=== PATIENT | female | born 1995 | race Caucasian/White ===

== ENCOUNTER → 2017-12-18 17:54 | Outpatient (REF) | payer OTHER, SELFPAY ==
--- NOTE | 2017-12-18 17:00 | CER_PTH ---
PATIENT: Xin De La Paz LOC: [facility] U#:[id number] AGE/SX: 30/F ROOM: RE12/18/[address]: Meryl Crowell MD : 1995 BED: DIS: SPEC #: [id number] RECD: 12/18/17 17:57 STATUS: DACIA BATISTA #: [id number] VERO: 12/18/17 17:[address]: Meryl Crowell DEPT: Surgical Specimen RECD BY: Lorraine Escalona ENTERED: 12/18/17 17:58 SP TYPE: CER OTHR DR: Kevan Villatoro Tissues: 1 - CERVICAL BIOPSY 2 - CERVICAL BIOPSY 3 - ENDOCERVICAL BX/CURRETTE Procedures: GROSS AND MICRO LEVEL 4 Comments: [id number]
== END ==
LOC: LBN 17:54
PROVIDERS: PCP Internal Medicine; Visit Provider Obstetrics & Gynecology
DX: N87.9 Dysplasia of cervix uteri, unspecified (principal); R87.611 Atypical squamous cells cannot exclude high grade squamous intraepithelial lesion on cytologic smear of cervix (ASC-H)
CPT/HCPCS: 88305

== ENCOUNTER 2019-06-10 16:31 | Outpatient (REF) | payer OTHER, SELFPAY ==
--- NOTE | 2019-06-10 15:48 | PAPFT_PTH ---
PATIENT: Xin De La Paz LOC: [facility] U#:[id number] AGE/SX: 24/F ROOM: RE06/10/[address]: Alexander Quarles MD : 1995 BED: DIS: 06/10/2019 SPEC #: [id number] RECD: 06/11/19 12:27 STATUS: DACIA REPari #: [id number] VERO: 06/10/19 15:[address]: Alexander Quarles DEPT: [facility] Cytology RECD BY: Lorraine Escalona ENTERED: 06/11/19 12:27 SP TYPE: PAPFT OTHR DR: Kevan Villatoro Tissues: 1 - CX/ENDOCX FOR PAP SMEARS Procedures: PAP THIN PREP/[facility] Screening Comments: [id number] (CHLAMYDIA/GC)
[2019-06-12 15:19] LABS: Chlamydia Result Negative (Negative); GC Result Negative (Negative)
== END 2019-06-10 16:51 ==
LOC: LBN 16:31
PROVIDERS: PCP Internal Medicine; Visit Provider Obstetrics & Gynecology
DX: Z12.4 Encounter for screening for malignant neoplasm of cervix (principal); Z11.3 Encounter for screening for infections with a predominantly sexual mode of transmission
CPT/HCPCS: 87491; 87591; 88142

== ENCOUNTER 2019-08-12 08:43 | Outpatient (CLI) | payer OTHER, SELFPAY ==
[2019-08-16 00:05] LABS: SARS-CoV-2 RNA Undetected (Undetected); SARS-CoV-2 Specimen Source Nasopharynx
== END 2019-08-12 09:03 ==
PROVIDERS: PCP Internal Medicine; Visit Provider Nurse Practitioner Family
DX: Z11.59 Encounter for screening for other viral diseases (principal)
CPT/HCPCS: U0003

== ENCOUNTER 2019-08-12 14:31 | Outpatient (REF) | payer OTHER, SELFPAY ==
[2019-08-12 19:50] LABS: Abs Immature Grans 0.01 k/cumm (0.0-0.09); Absolute Basophil Count 0.01 k/cumm (0.0-0.2); Absolute Eosinophil Count 0.01 k/cumm (0.0-0.7); Absolute Lymphocyte Count 1.12 k/cumm (1.2-3.4); Absolute Monocyte Count 0.52 k/cumm (0.11-0.7); Absolute Neutrophil Count 5.95 k/cumm (1.2-6.7); Basophils % 0.1; Eosinophils % 0.1; HCT 44.1 % (36.0-46.0); HGB 14.5 g/dL (12.0-15.5); Immature Grans % 0.1 %; Lymphocytes % 14.7; Mean Corp. HGB Concentration 32.9 g/dL (32.0-36.0); Mean Corpuscular Hemoglobin 27.8 pg (27.0-33.0); Mean Corpuscular Volume 84.5 fL (80-95); Mean Platelet Volume 11.1 fL (8.0-11.0); Monocytes % 6.8; Neutrophils % 78.2; Platelet Count 279 x1000/uL (130-400); RBC 5.22 m/cumm (4.00-5.20); RBC Distribution Width 13.5 % (11.7-14.6); White Blood Cell Count 7.62 k/cumm (4.4-10.8)
[2019-08-12 20:15] LABS: ALT 30 U/L (14-59); AST 20 U/L (15-37); Albumin 3.6 g/dL (3.4-5.0); Alkaline Phosphatase 85 U/L (46-116); Anion Gap 10.2 mmol/L (3-11); BUN 12 mg/dL (7-18); Bilirubin, Total 0.4 mg/dL (0.2-1.0); CO2 26.8 mmol/L (21.0-32.0); CREATININE 0.76 mg/dL (0.55-1.02); Calcium 8.7 mg/dL (8.5-10.1); Chloride 101 mmol/L (98-107); Glucose 79 mg/dL (74-106); Sodium 138 mmol/L (136-145); TSH (W/Ref FT4) 1.36 uIU/mL (0.36-3.74); Total Protein 6.8 g/dL (6.4-8.2)
== END 2019-08-12 14:51 ==
LOC: NCHCN 14:31
PROVIDERS: PCP Internal Medicine; Visit Provider Nurse Practitioner Family
DX: R19.7 Diarrhea, unspecified (principal); R10.9 Unspecified abdominal pain; M54.9 Dorsalgia, unspecified
CPT/HCPCS: 80053; 84443; 85025; 87086

== ENCOUNTER 2020-10-12 16:18 | Outpatient (REF) | payer OTHER, SELFPAY ==
[2020-10-12 15:19] LABS: Abs Immature Grans 0.01 10^3/uL (0.0-0.06); Absolute Basophil Count 0.03 10^3/uL (0.0-0.2); Absolute Eosinophil Count 0.28 10^3/uL (0.0-0.7); Absolute Lymphocyte Count 2.58 10^3/uL (1.2-3.4); Absolute Monocyte Count 0.57 10^3/uL (0.1-0.8); Absolute Neutrophil Count 4.43 10^3/uL (1.2-6.7); Basophils % 0.4; Eosinophils % 3.5; HCT 42.8 % (36.0-46.0); HGB 13.6 g/dL (11.2-15.7); Immature Grans % 0.1; Lymphocytes % 32.7; MCH 27.1 pg (27.0-33.0); MCHC 31.8 % (32.0-36.0); MCV 85.4 fL (80-95); MPV 11.1 fL (8.0-11.0); Monocytes % 7.2; Neutrophils % 56.1; Nucleated RBC 0 %; Platelet Count 317 10^3/uL (130-400); RBC 5.01 10^6/uL (3.93-5.22); RDW 13.2 % (11.7-14.6); RDW-SD 41.2 fL
[2020-10-12 15:50] LABS: ALT 33 U/L (14-59); AST 18 U/L (15-37); Albumin 3.4 g/dL (3.4-5.0); Alkaline Phosphatase 96 U/L (46-116); Anion Gap 8.1 mmol/L (3-11); BUN 13 mg/dL (7-18); Bilirubin, Total 0.3 mg/dL (0.2-1.0); CO2 25.9 mmol/L (21.0-32.0); CREATININE 0.7 mg/dL (0.55-1.02); Calcium 8.5 mg/dL (8.5-10.1); Chloride 108 mmol/L (98-107); Glucose 106 mg/dL (74-106); Potassium 4.1 mmol/L (3.5-5.1); Sodium 142 mmol/L (136-145); Total Protein 6.3 g/dL (6.4-8.2)
[2020-10-14 16:25] LABS: Helicobacter pylori Ag, Feces Negative (Negative)
== END 2020-10-12 16:19 | disposition home or self-care (01) ==
LOC: NCHCN 16:18
PROVIDERS: PCP Internal Medicine; Visit Provider Family Medicine
DX: K21.9 Gastro-esophageal reflux disease without esophagitis (principal)
CPT/HCPCS: 80053; 87338; 85025

== ENCOUNTER 2021-03-04 13:56 | Outpatient (REF) | payer OTHER, SELFPAY | END 2021-03-04 13:57 | disposition home or self-care (01) | LOC: NCHCN 13:56 | PROVIDERS: PCP Internal Medicine; Visit Provider Family Medicine | DX: N30.00 Acute cystitis without hematuria (principal) | CPT/HCPCS: 87077; 87086; 87186 ==

== ENCOUNTER 2022-03-06 09:38 | Outpatient (CLI) | payer OTHER, SELFPAY ==
[2022-03-06 09:46] LABS: HCG Quant, Pregnancy 42294 mIU/mL (1-3)
== END 2022-03-06 09:39 | disposition home or self-care (01) ==
LOC: LBO 09:39
PROVIDERS: PCP Internal Medicine; Visit Provider Obstetrics & Gynecology Gynecology
DX: N91.2 Amenorrhea, unspecified (principal); Z32.01 Encounter for pregnancy test, result positive
CPT/HCPCS: 36415; 86900; 86901; 84702

== ENCOUNTER 2022-03-08 04:11 | Outpatient (CLI) | payer OTHER, SELFPAY ==
[2022-03-08 13:26] LABS: HCG Quant, Pregnancy 45633 mIU/mL (1-3)
== END 2022-03-08 04:12 | disposition home or self-care (01) ==
LOC: LBO 04:12
PROVIDERS: Nurse Practitioner Women's Health; PCP Internal Medicine; Visit Provider Obstetrics & Gynecology Gynecology
DX: R10.2 Pelvic and perineal pain (principal); Z32.01 Encounter for pregnancy test, result positive
CPT/HCPCS: 36415; 84702

== ENCOUNTER 2022-04-06 03:47 | Outpatient (CLI) | payer OTHER, SELFPAY ==
[2022-04-06 14:47] LABS: HCG Quant, Pregnancy 744 mIU/mL (1-3)
== END 2022-04-06 03:48 | disposition home or self-care (01) ==
PROVIDERS: PCP Internal Medicine; Visit Provider Obstetrics & Gynecology
DX: Z33.2 Encounter for elective termination of pregnancy (principal)
CPT/HCPCS: 36415; 84702

== ENCOUNTER 2023-11-16 20:30 | Outpatient (REF) | payer OTHER, SELFPAY | END 2023-11-16 20:31 | disposition home or self-care (01) | LOC: LBN 20:30 | PROVIDERS: PCP Internal Medicine; Visit Provider Physician Assistant Medical | DX: J02.9 Acute pharyngitis, unspecified (principal) | CPT/HCPCS: 87070 ==

== ENCOUNTER 2024-03-04 23:59 | Outpatient (REF) | payer OTHER, SELFPAY ==
[2024-03-04 14:53] LABS: HCT 48.3 % (36.0-46.0); MCH 26.3 pg (27.0-33.0); MCHC 31.1 % (32.0-36.0); MCV 85 fL (80-95); MPV 10.4 fL (8.0-11.0); Platelet Count 379 10^3/uL (130-400); RDW 14.3 % (11.7-14.6); RDW-SD 44.3 fL; WBC 8.81 10^3/uL (4.4-10.8)
[2024-03-04 15:06] LABS: ALT 35 U/L (14-59); AST 22 U/L (15-37); Albumin 4.1 g/dL (3.4-5.0); Alkaline Phosphatase 102 U/L (46-116); BUN 13 mg/dL (7-18); Bilirubin, Total 0.37 mg/dL (0.2-1.0); CREATININE 0.9 mg/dL (0.55-1.02); Calcium 9.6 mg/dL (8.5-10.1); Chloride 104 mmol/L (98-107); Estimated GFR 89.86 (mL/min/1.73m2); Glucose 92 mg/dL (74-106); Potassium 4.6 mmol/L (3.5-5.1); Sodium 144 mmol/L (136-145); TSH (W/Ref FT4) 3.19 uIU/mL (0.36-3.74); Total Protein 7.7 g/dL (6.4-8.2)
== END 2024-03-05 | disposition home or self-care (01) ==
LOC: NCHCN 23:59
PROVIDERS: PCP Internal Medicine; Visit Provider Nurse Practitioner Family
DX: Z00.00 Encounter for general adult medical examination without abnormal findings (principal); N92.6 Irregular menstruation, unspecified
CPT/HCPCS: 80053; 85027; 84443